=== PATIENT | female | born 1975 | race Caucasian/White ===

== ENCOUNTER → 2017-01-18 | Outpatient (CLI) | payer MEDICARE ==
--- NOTE | 2017-01-19 09:58 | MM ---
Reason for exam: screening (asymptomatic). Last mammogram was performed 2 years and 5 months ago. History: Took hormonal contraceptives for 20 years beginning at age 16. Physical Findings: A clinical breast exam by your physician is recommended on an annual basis and results should be correlated with mammographic findings. MG 3D Screening Mammo W/Cad Bilateral CC and MLO view(s) were taken. Prior study comparison: August 29, 2014, bilateral MG diagnostic mammo w CAD MELONIE. July 04, 2012, bilateral digital screening mammo w/CAD. There are scattered fibroglandular densities. There is chronic nodularity bilaterally. No significant changes when compared with prior studies. ASSESSMENT: Benign, BI-RAD 2 RECOMMENDATION: Routine screening mammogram of both breasts in 1 year.
== END | disposition home or self-care (01) ==
LOC: RADMAMWWP 10:04
PROVIDERS: ATTEND Family Medicine
DX: Z12.31 Encounter for screening mammogram for malignant neoplasm of breast (principal)
CPT/HCPCS: 77063; G0202

== ENCOUNTER → 2017-06-10 | Outpatient (CLI) | payer MEDICARE ==
--- NOTE | 2017-06-10 15:14 | PN ---
PROGRESS NOTE DATE OF SERVICE: 06/10/2017 A 41-year-old lady who has been followed in the [facility] for treatment of obstructive sleep apnea-hypopnea syndrome. Patient had polysomnogram and CPAP titration done several months ago and I discussed results of the test with the patient in details. She has moderate obstructive sleep apnea-hypopnea syndrome with apnea- hypopnea index 15.3, which was on control with CPAP at 9 cm of water. For different technical problems, patient did not receive her CPAP machine yet and she continued to have stopped breathing during the sleep, awakening from sleep with gasping for air. [place] Sleepiness Scale today is 10. MEDICATIONS: Levothyroxine, famotidine, amitriptyline, pramipexole, metformin, atenolol, melatonin, bupropion, Adderall, Klonopin, Imitrex, iron supplement, vitamins, control pill, aspirins. PHYSICAL EXAM: A 41-year-old lady without distress. BP 134/91, HR 94, RR 16, weight 318, temperature 98.2 oxygen saturation at room air 97%. OROPHARYNX: Extremely low position of soft palate. ABDOMEN: Obese. Neck Supple, no JVD. Thyroid is not palpable. LUNGS Clear to percussion and to auscultation. Good air exchange. No wheezing or rhonchi. HEART S1, S2 regular. No murmurs, gallops, or rubs. EXTREMITIES No clubbing or cyanosis. BOX SPINNER Awake, alert, and oriented X3. Cranial nerves 2 to 7 intact. There is no fasciculation or atrophy. noted. No focal deficits observed. IMPRESSION: 1. Moderate obstructive sleep apnea-hypopnea syndrome/. 2. Obesity. 3. Hypothyroidism. 4. Diabetes mellitus. 5. Hypertension. 6. History of restless legs syndrome. 7. Depression. 8. Anxiety. 9. History of attention deficit hyperactivity disorder. 10.Migraines. 11.Status post cholecystectomy. 12.Close head injury with shunt insertion to the to the to the head, which has been removed. PLAN: 1. Patient should receive her CPAP unit and to start use CPAP equipment as soon as possible. I recommended CPAP pressure is 9 cm of water. 2. Losing weight. 3. Sleep hygiene with regular time in bed for at least 8 hours. 4. No driving if feeling sleepiness. Thank you very much for allowing me to participate in the management of your patient. Sincerely, Ghulam Evans MD, PhD, FAASM Diplomat of [employer] Contracting Specialist of [facility] [place] KING / GREY: [id number] /
== END | disposition home or self-care (01) ==
LOC: SLEEP 13:17
PROVIDERS: ATTEND Internal Medicine
DX: G47.33 Obstructive sleep apnea (adult) (pediatric) (principal); E66.9 Obesity, unspecified; E03.9 Hypothyroidism, unspecified; E11.9 Type 2 diabetes mellitus without complications; I10 Essential (primary) hypertension; F32.9 Major depressive disorder, single episode, unspecified; F41.9 Anxiety disorder, unspecified; G43.909 Migraine, unspecified, not intractable, without status migrainosus; Z90.49 Acquired absence of other specified parts of digestive tract

== ENCOUNTER → 2017-10-08 | Outpatient (CLI) | payer MEDICARE ==
--- NOTE | 2017-10-08 09:20 | XR ---
EXAMINATION TYPE: XR shoulder complete LT DATE OF EXAM: 10/08/2017 COMPARISON: NONE HISTORY: Pain TECHNIQUE: Three views are submitted. FINDINGS: The osseous structures are intact. There is no acute fracture or dislocation. Mild narrowing and hyp ertrophic change of the AC joint.. There is a deformity of the left fifth rib laterally compatible w ith remote fracture. IMPRESSION: 1. Mild AC joint arthropathy. If there is concern for rotator cuff injury correlate with MRI..
== END | disposition home or self-care (01) ==
LOC: RADXRMAIN 08:36
PROVIDERS: ATTEND Family Medicine
DX: M12.812 Other specific arthropathies, not elsewhere classified, left shoulder (principal)

== ENCOUNTER → 2017-10-20 | Outpatient (CLI) | payer MEDICARE ==
--- NOTE | 2017-10-20 17:11 | CT ---
EXAMINATION TYPE: CT abdomen pelvis w con DATE OF EXAM: 10/20/2017 COMPARISON: NONE INDICATION: Epigastric pain DLP: 2446 mGycm, Automated exposure control for dose reduction was used. CONTRAST: 100 mL of Omnipaque 300. Study performed with Oral Contrast TECHNIQUE: Axial images were obtained from above the diaphragm to the pubic rami in the axial plane a t 5 mm thick sections. Reconstructed images are reviewed on the computer in the coronal plane. FINDINGS: Limited CT sections are obtained the lung bases. The lung bases are clear. CT ABDOMEN: Liver: Normal Spleen: Normal Pancreas: Normal Adrenal glands: The adrenal glands are normal. Gallbladder: Surgically absent Kidneys: No masses are evident. No hydronephrosis is present. No cysts are present. Delayed images were obtained through the kidneys, which remain unremarkable. Aorta: Normal Inferior vena cava: Normal. CT PELVIS: Loops of bowel within the abdomen and pelvis are normal. There are loops of bowel which are incom pletely distended or lack oral contrast limiting their evaluation. Fecal debris is within the colon. Appendix: What appears to be the appendix is normal. Urinary bladder: Normal. Genitourinary structures: Uterus is normal. Adnexal regions are clear. Phlebolith is in the right hem ipelvis. Osseous structures: No suspicious lytic or sclerotic lesions. IMPRESSIONS: 1. No acute abnormality to account for epigastric pain.
== END | disposition home or self-care (01) ==
LOC: RADCTMAIN 12:13
PROVIDERS: ATTEND Family Medicine
DX: R10.13 Epigastric pain (principal)
CPT/HCPCS: 82565; 84520; 74177; 36415; Q9967

== ENCOUNTER → 2018-04-25 | Outpatient (CLI) | payer MEDICARE ==
--- NOTE | 2018-04-27 10:56 | MM ---
Reason for exam: screening (asymptomatic). Last mammogram was performed 1 year and 3 months ago. History: Took hormonal contraceptives for 20 years beginning at age 16. Physical Findings: A clinical breast exam by your physician is recommended on an annual basis and results should be correlated with mammographic findings. MG 3D Screening Mammo W/Cad Bilateral CC and MLO view(s) were taken. Prior study comparison: January 18, 2017, bilateral MG 3d screening mammo w/cad. August 29, 2014, bilateral MG diagnostic mammo w CAD MELONIE. There are scattered fibroglandular densities. There is chronic nodularity in the left breast. Marker placed on the right at the site of skin alterations indicated by the patient. No significant changes when compared with prior studies. ASSESSMENT: Negative, BI-RAD 1 RECOMMENDATION: Routine screening mammogram of both breasts in 1 year. Manage on a clinical basis with regard to skin pathology described by the patient on the right breast.
== END | disposition home or self-care (01) ==
LOC: RADMAMWWP 12:27
PROVIDERS: ATTEND Family Medicine
DX: Z12.31 Encounter for screening mammogram for malignant neoplasm of breast (principal)
CPT/HCPCS: 77063; 77067

== ENCOUNTER 2018-11-13 11:20 | Emergency (ER) | payer MEDICARE ==
[2018-11-13 11:27] VITALS: RESP 18; TEMP 98
[2018-11-13] MEDS ORDERED: KETOROLAC 60 MG/2 ML VIAL IM STA (11:42)
[2018-11-13 11:58] LABS: Amorphous Sediment,Urine Rare /hpf; Appearance,Urine Cloudy (Clear); Bacteria,Urine Moderate /hpf; Bilirubin,Urine Negative (Negative); Blood,Urine Moderate (Negative); Color,Urine Yellow; Glucose,Urine (UA) Negative (Negative); Ketones,Urine Negative (Negative); Leukocyte Esterase,Urine Trace (Negative); Mucus,Urine Few /hpf; Nitrite,Urine Negative (Negative); Protein,Urine 1+ (Negative); RBC,Urine >182 /hpf (0-5); Specific Gravity,Urine 1.031 (1.001-1.035); Squamous Epithelial Cell,Urine 8 /hpf (0-4)
[2018-11-13] MEDS ORDERED: ONDANSETRON 4 MG/2 ML VIAL IVP STA (12:28)
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
[2018-11-13 12:37] LABS: Anisocytosis Slight; Basophils % (A) 0 %; Eosinophils # (A) 0.2 k/uL (0-0.7); Eosinophils % (A) 1 %; HCT 40.9 % (34.0-46.0); HGB 13.9 gm/dL (11.4-16.0); Lymphocytes # (A) 2.6 k/uL (1.0-4.8); Lymphocytes % (A) 25 %; MCH 28.7 pg (25.0-35.0); MCV 84.5 fL (80.0-100.0); Mean Platelet Volume 9.3; Monocytes # (A) 0.5 k/uL (0-1.0); Monocytes % (A) 5 %; Neutrophils # (A) 6.7 k/uL (1.3-7.7); Neutrophils % (A) 67 %; Platelet Count 411 k/uL (150-450); RBC 4.84 m/uL (3.80-5.40); RDW 16.2 % (11.5-15.5); WBC 10.1 k/uL (3.8-10.6)
[2018-11-13 12:53] LABS: Calcium 9.5 mg/dL (8.4-10.2); Potassium 3.9 mmol/L (3.5-5.1)
--- NOTE | 2018-11-13 14:13 | CT ---
EXAMINATION TYPE: CT abdomen pelvis wo con DATE OF EXAM: 11/13/2018 COMPARISON: Previous study dated 10/20/2017. HISTORY: Abdominal pain. Blood in stool. CT DLP: 1970 mGycm Automated exposure control for dose reduction was used. FINDINGS: Visualized portions of the lungs are clear. There is no pleural or pericardial fluid. The h eart is not enlarged. Within the abdomen, the liver is enlarged measuring 21 cm. The gallbladder has been removed. The sple en is unremarkable. Both adrenal glands appear normal. There is mild hydronephrosis on the left and mild hydroureter. There is a 2 to 3 mm calculus at the l evel of the left UVJ. Limited views of the pancreas are normal. There is no significant retroperitoneal, iliac or inguinal adenopathy. The bladder is not distended. The uterus and ovaries are normal. There have been previous tubal ligations. There is colonic wall thickening involving the left side of the colon. The appendix is normal. Small bowel loops are normal in caliber. There is no free fluid and no free air. No bony lesion is seen. IMPRESSION: 1. QUESTIONABLE THICKENING OF THE LEFT SIDE OF THE COLON. PLEASE CORRELATE FOR COLITIS. 2. 2 TO 3 MM CALCULUS AT THE LEVEL OF THE LEFT UVJ CAUSING MILD LEFT-SIDED HYDRONEPHROSIS AND HYDROUR ETER. 3. MILD HEPATOMEGALY.
[2018-11-13] MEDS ORDERED: ACET/COD 300 MG/30 MG STARTER PACK 6 TAB BTL PO STA (14:14)
[2018-11-13 14:40] VITALS: BP 141/97; PULSE 71
== END 2018-11-13 14:37 | disposition home or self-care (01) ==
LOC: EC 11:20
DX: N13.2 Hydronephrosis with renal and ureteral calculous obstruction (principal); E11.9 Type 2 diabetes mellitus without complications; I10 Essential (primary) hypertension; G47.30 Sleep apnea, unspecified; E07.9 Disorder of thyroid, unspecified; F90.9 Attention-deficit hyperactivity disorder, unspecified type; F32.9 Major depressive disorder, single episode, unspecified; Z79.890 Hormone replacement therapy; Z79.82 Long term (current) use of aspirin; Z79.899 Other long term (current) drug therapy; Z79.84 Long term (current) use of oral hypoglycemic drugs; Z88.0 Allergy status to penicillin; Z91.048 Other nonmedicinal substance allergy status; Z87.891 Personal history of nicotine dependence; Z90.49 Acquired absence of other specified parts of digestive tract
CPT/HCPCS: 36415; 80048; 85025; 81001; 81025; 87086; 74176; 99284; 96374; 96372; J2405; J1885

== ENCOUNTER → 2018-12-08 | Outpatient (CLI) | payer MEDICARE, OTHER ==
--- NOTE | 2018-12-08 18:12 | PN ---
PROGRESS NOTE DATE OF SERVICE: 12/08/2018 43-year-old lady who has been followed in the Sleep Center for treatment of obstructive sleep apnea-hypopnea syndrome. The patient has been diagnosed with obstructive sleep apnea in 2017. At that time, apnea-hypopnea index was 15. She was started on treatment with CPAP, but for different reasons her machine was taken from her and she had never used CPAP since that time. Presently, she continued to have her problems related to snoring and multiple awakenings from sleep. Morley Sleepiness Scale today is 8. MEDICATIONS: Sumatriptan, metformin, omeprazole, Celebrex, levothyroxine, Buspirone, atenolol, atorvastatin, Depo-Provera . PHYSICAL EXAM: GENERAL: Patient in no distress. VITAL SIGNS: BP 130/84, HR 69, RR 18, height 5 feet 7 inches, weight 328.6 pounds, body max index 51.3, temperature 98.5, oxygen saturation at room air 97%. HEENT: Oropharynx showed extremely low position of soft palate. Mallampati 4. Wide neck 17 inches in circumference. NECK: Supple, no JVD. Thyroid is not palpable. LUNGS Clear to percussion and to auscultation. Good air exchange. No wheezing or rhonchi. HEART S1, S2 regular. No murmurs, gallops, or rubs. ABDOMEN: Obese. Soft and nontender. Bowel sounds are present. No organomegaly appreciated. EXTREMITIES No clubbing or cyanosis. GRANULATING BLENDER Awake, alert, and oriented X3. Cranial nerves 2 to 7 intact. There is no fasciculation or atrophy. noted. No focal deficits observed. IMPRESSION: 1. Snoring, multiple awakenings from sleep, extremely low position of soft palate, wide neck, obstructive sleep apnea-hypopnea syndrome. 2. Obesity BMI 51.3. 3. Migraines. 4. Hypertension. 5. Hypothyroidism. 6. History of depression. 7. History of anxiety. 8. History of attention-deficit/hyperactivity disorder. 9. History of restless legs syndrome. 10.Status post cholecystectomy. 11.Status post closed head injury. PLAN: 1. Home sleep apnea test to document obstructive sleep apnea-hypopnea syndrome. 2. CPAP titration for evaluation of effective CPAP pressure. 3. Losing weight. 4. Sleep hygiene with regular time in bed for at least 8 hours. 5. No driving if feeling any sleepiness. Thank you very much for allowing me to participate in management of your patient. Sincerely, Ghulam Evans MD, PhD, FAASM Diplomat of [employer] [employer] Graphic Specialist of [facility] [place] [id number] / MANUELN: [id number] /
== END ==
LOC: SLEEP 14:25
PROVIDERS: ATTEND Internal Medicine
DX: G47.33 Obstructive sleep apnea (adult) (pediatric) (principal); E66.9 Obesity, unspecified; G43.909 Migraine, unspecified, not intractable, without status migrainosus; I10 Essential (primary) hypertension; E03.9 Hypothyroidism, unspecified; F32.9 Major depressive disorder, single episode, unspecified; F41.9 Anxiety disorder, unspecified; F90.9 Attention-deficit hyperactivity disorder, unspecified type; G25.81 Restless legs syndrome; Z90.49 Acquired absence of other specified parts of digestive tract; Z98.890 Other specified postprocedural states; Z68.43 Body mass index [BMI] 50.0-59.9, adult; Z99.89 Dependence on other enabling machines and devices; Z79.899 Other long term (current) drug therapy; Z79.84 Long term (current) use of oral hypoglycemic drugs; Z79.3 Long term (current) use of hormonal contraceptives

== ENCOUNTER → 2019-03-10 | Day surgery (SDC) | payer MEDICARE ==
[2019-03-07 12:25] VITALS: BMI 52.4
[~2019-03-10] MED LIST: LACTATED RINGERS 1,000 ML IV SCH; LIDOCAINE 1% 20 ML VIAL (10MG/ML) FOR IV START INTRADERMA ONE; LIDOCAINE 1% INJ 10MG/ML (20 ML MDV) ONE; MIDAZOLAM 2 MG/2 ML VIAL ONE; PROPOFOL 10 MG/ML 20 ML VIAL IV ONE
[2019-03-10 07:46] VITALS: TEMP 96.8
[2019-03-10 07:55] LABS: Glucose,Whole Blood 100 mg/dL (75-99)
--- NOTE | 2019-03-10 08:17 | P.PCN ---
Date of Procedure: 03/10/19 Procedure(s) Performed: BRIEF HISTORY: Patient is a 43-year-old, pleasant, white female, scheduled for an upper endoscopy as a part of value should of chronic persistent nausea and epigastric discomfort for the last 1 year duration. She was recently started on Pepcid 20 mg twice daily and symptoms are gradually improving. Scheduled for an upper endoscopy to evaluate further. PROCEDURE PERFORMED: Esophagogastroduodenoscopy with biopsy. PREOPERATIVE DIAGNOSIS: Chronic persistent nausea and epigastric pain. IV sedation per anesthesia. PROCEDURE: After informed consent was obtained, the patient was brought into the endoscopy unit. IV sedation was administered by Anesthesia under continuous monitoring. Initially the Olympus GIF-140 video endoscope was inserted into the mouth. Esophagus intubated without any difficulty. It was gradually advanced into the stomach and duodenum and carefully examined. The bulb and the second part of the duodenum appeared normal. The scope at this time was withdrawn to the stomach, adequately insufflated with air, and upon careful examination, mucosa of the antrum, had mild gastritis and biopsies were done from this area. The body, cardia and the fundus appeared normal. There was moderate amount of retained liquid/solid food in the stomach suggestive of gastroparesis. No evidence of gastric outlet obstruction. The scope was then withdrawn into the esophagus. The GE junction was located at 39 cm from the incisors. The esophagus appeared normal. There were no erosions or ulcerations seen and the patient tolerated the procedure well. IMPRESSION: 1. Retained food in the stomach suggestive of gastroparesis. 2. Mild antral gastritis. RECOMMENDATIONS: The findings of this examination were discussed with the patient as well as her family. She was advised to continue with Pepcid 20 mg twice daily and small frequent meals. If she remains symptomatic he may give given a trial of Reglan as needed for gastroparesis..
[2019-03-10 09:07] VITALS: BP 128/76; PULSE 69; RESP 17
== END ==
LOC: ORWHC2ENDO 07:15
PROVIDERS: ATTEND Internal Medicine Gastroenterology
DX: K29.50 Unspecified chronic gastritis without bleeding (principal); K29.80 Duodenitis without bleeding; K31.89 Other diseases of stomach and duodenum; K31.84 Gastroparesis; I10 Essential (primary) hypertension; G43.909 Migraine, unspecified, not intractable, without status migrainosus; E07.9 Disorder of thyroid, unspecified; E11.9 Type 2 diabetes mellitus without complications; R41.3 Other amnesia; G47.33 Obstructive sleep apnea (adult) (pediatric); Z87.891 Personal history of nicotine dependence; Z79.3 Long term (current) use of hormonal contraceptives; Z79.890 Hormone replacement therapy; Z79.899 Other long term (current) drug therapy; Z79.84 Long term (current) use of oral hypoglycemic drugs; Z88.0 Allergy status to penicillin
CPT/HCPCS: 43239; 88305; 81025; J2250; J2001; J2704

== ENCOUNTER → 2019-05-16 | Outpatient (CLI) | payer MEDICARE, OTHER ==
--- NOTE | 2019-05-19 10:23 | MM ---
Reason for exam: screening (asymptomatic). Last mammogram was performed 1 year and 1 month ago. History: Took hormonal contraceptives for 20 years beginning at age 16. Physical Findings: A clinical breast exam by your physician is recommended on an annual basis and results should be correlated with mammographic findings. MG 3D Screening Mammo W/Cad Bilateral CC and MLO view(s) were taken. Prior study comparison: April 25, 2018, bilateral MG 3d screening mammo w/cad. January 18, 2017, bilateral MG 3d screening mammo w/cad. There are scattered fibroglandular densities. No significant changes when compared with prior studies. ASSESSMENT: Benign, BI-RAD 2 RECOMMENDATION: Routine screening mammogram of both breasts in 1 year.
== END | disposition home or self-care (01) ==
LOC: RADMAMWWP 13:25
PROVIDERS: ATTEND Family Medicine
DX: Z12.31 Encounter for screening mammogram for malignant neoplasm of breast (principal)
CPT/HCPCS: 77063; 77067

== ENCOUNTER → 2020-02-21 | Outpatient (CLI) | payer MEDICARE, OTHER ==
--- NOTE | 2020-02-21 19:53 | SFUN ---
SLEEP CENTER FOLLOW UP NOTE DATE OF SERVICE: 02/21/2020 This patient is a 44-year-old lady who has been followed in Sleep Center for treatment of obstructive sleep apnea-hypopnea syndrome. The patient has a history of obstructive sleep apnea in the past, was treated with CPAP, but for different reasons was not able to use the machine. Then more than one year ago we repeated her home sleep apnea test and then, because of insurance issues, the patient did not receive her machine. Again, this was more than one year ago. At present she continues to have some problems with sleep: snoring, awakenings from sleep. [place] Sleepiness Scale is 4. Previously she had mild sleep apnea by results of home sleep test. MEDICATIONS: Vitamins B and vitamin D. PHYSICAL EXAMINATION: GENERAL: A pleasant patient in no distress. VITAL SIGNS: BP 156/82, HR 70, RR 16, height 5 feet 6 inches, weight 326, BMI 52.6, temperature 98.9, oxygen saturation at room air 97%. HEENT: PERRLA, EOMI. Evaluation of oropharynx showed tongue protrudes midline. Extremely low position of soft palate. Mallampati IV. NECK: Supple. No JVD. Thyroid is not palpable. Neck measures 17 inches in circumference. LUNGS: Clear to percussion and to auscultation. Good air exchange. No wheezing or rhonchi. HEART: S1, S2 regular. No murmurs, gallops or rubs. ABDOMEN: Obese. EXTREMITIES: No clubbing or cyanosis. UI DESIGNER: Awake, alert, and oriented X3. Cranial nerves 2 to 7 intact. There is no fasciculation or atrophy. noted. No focal deficits observed. IMPRESSION: 1. Snoring, multiple awakenings from sleep, extremely low position of soft palate; obstructive sleep apnea-hypopnea syndrome. 2. Obesity. 3. Migraines. 4. Hypertension. 5. History of depression. 6. History of anxiety. 7. Hypothyroidism. 8. History of attention deficit hyperactivity disorder. 9. History of restless legs syndrome. 10.Status post cholecystectomy. 11.Status post closed head injury. PLAN: 1. Polysomnography for re-evaluation of patient's breathing during sleep; also to check for leg movements. 2. CPAP titration if the sleep study is positive for obstructive sleep apnea-hypopnea syndrome. 3. Losing weight. 4. Sleep hygiene with regular time in bed for at least 7-1/2 to 8 hours. 5. No driving if feeling any sleepiness. Thank you very much for allowing me to participate in the management of your patient. Sincerely, Ghulam Evans MD, PhD, FAASM Diplomat of [employer] Foot Orthopedist of [facility] [place] MMODL / MANUELN: [id number] /
== END | disposition home or self-care (01) ==
LOC: SLEEP 14:14
PROVIDERS: ATTEND Internal Medicine
DX: G47.33 Obstructive sleep apnea (adult) (pediatric) (principal); Z99.89 Dependence on other enabling machines and devices; E66.9 Obesity, unspecified; G43.909 Migraine, unspecified, not intractable, without status migrainosus; I10 Essential (primary) hypertension; E03.9 Hypothyroidism, unspecified; Z90.79 Acquired absence of other genital organ(s); Z86.59 Personal history of other mental and behavioral disorders

== ENCOUNTER → 2020-10-01 | Outpatient (CLI) | payer MEDICARE, OTHER ==
--- NOTE | 2020-10-02 10:19 | MM ---
Reason for exam: screening (asymptomatic). Last mammogram was performed 1 year and 4 months ago. History: Taking hormonal contraceptives for 20 years beginning at age 16. Physical Findings: A clinical breast exam by your physician is recommended on an annual basis and results should be correlated with mammographic findings. MG 3D Screening Mammo W/Cad Bilateral CC and MLO view(s) were taken. Prior study comparison: May 16, 2019, bilateral MG 3d screening mammo w/cad. April 25, 2018, bilateral MG 3d screening mammo w/cad. Finding #1: There is a 10 mm equal density (isodense) mass in the upper outer quadrant of the left breast. Finding #2: There are typically benign calcifications. There is a chronic nodularity in the left breast, stable. ASSESSMENT: Incomplete: need additional imaging evaluation, BI-RAD 0 RECOMMENDATION: Special view mammogram of the left breast. If lesion persists on supplemental views, image directed ultrasound is recommended. [facility] will attempt to contact patient to return for supplemental views and ultrasound if indicated.
== END | disposition home or self-care (01) ==
LOC: RADMAMWWP 10:50
PROVIDERS: ATTEND Family Medicine
DX: Z12.31 Encounter for screening mammogram for malignant neoplasm of breast (principal)
CPT/HCPCS: 77063; 77067

== ENCOUNTER → 2020-10-07 | Outpatient (CLI) | payer MEDICARE, OTHER ==
--- NOTE | 2020-10-07 09:40 | MM ---
Reason for exam: additional evaluation requested from abnormal screening. Last mammogram was performed less than 1 month ago. History: Taking hormonal contraceptives beginning at age 16. Physical Findings: Nurse did not find any significant physical abnormalities on exam. MG 3D Work Up W/Cad LT Spot compression CC, spot compression MLO, ML, and CC view(s) were taken of the left breast. Prior study comparison: October 01, 2020, bilateral MG 3d screening mammo w/cad. May 16, 2019, bilateral MG 3d screening mammo w/cad. There are scattered fibroglandular densities. The posterior upper outer quadrant focal asymmetry becomes less defined on additional views. A precautionary 6 month follow up is recommended. These results were verbally communicated with the patient and result sheet given to the patient on 10/07/20. ASSESSMENT: Probably benign, BI-RAD 3 RECOMMENDATION: Follow-up diagnostic mammogram of the left breast in 6 months.
== END ==
LOC: RADMAMWWP 08:34
PROVIDERS: ATTEND Family Medicine
DX: R92.8 Other abnormal and inconclusive findings on diagnostic imaging of breast (principal)
CPT/HCPCS: 77065; G0279; 77061

== ENCOUNTER → 2020-10-31 | Outpatient (CLI) | payer MEDICARE, OTHER ==
--- NOTE | 2020-10-31 16:04 | SFUN ---
SLEEP CENTER FOLLOW UP NOTE DATE OF SERVICE: 10/31/2020 This 45-year-old lady has been followed in Sleep Center for treatment of obstructive sleep apnea-hypopnea syndrome. Recently after polysomnogram and CPAP titration the patient received her CPAP unit, and today is his first time coming back while being on treatment with CPAP. She feels better while she is using her CPAP. She feels better during the day but still has some episodes of sleepiness during the day, although [place] Sleepiness Scale today is only 4. During the sleep study we also observed some leg movements. The patient does not complain of leg movements at night. She does not feel it, but this also could be precipitating and feeling of sleepiness during the day. I checked her CPAP unit. Usage is 100% of the time with average usage 7 hours 36 minutes. Range of the pressure is 5 to 15 with average pressure 14.6 cm of water. Leak is 1.0, 95th percentile. Apnea-hypopnea index is only 0.8, which is absolutely perfect. PHYSICAL EXAMINATION: GENERAL: A pleasant patient in no distress. VITAL SIGNS: BP 155/103, HR 71, RR 20, weight 328.0, temperature 97.7, oxygen saturation at room air 97%. HEENT: PERRLA, EOMI. Evaluation of oropharynx showed tongue protrudes midline. Extremely low position of soft palate. Mallampati IV. NECK: Supple. No JVD. Thyroid is not palpable. LUNGS: Clear to percussion and to auscultation. Good air exchange. No wheezing or rhonchi. HEART: S1, S2 regular. No murmurs, gallops or rubs. ABDOMEN: Obese. EXTREMITIES: No clubbing or cyanosis. ORACLE BPM DEVELOPER: Awake, alert, and oriented X3. Cranial nerves 2 to 7 intact. There is no fasciculation or atrophy. noted. No focal deficits observed. IMPRESSION: 1. Obstructive sleep apnea-hypopnea syndrome. Patient demonstrated 100% compliance with treatment, benefitting from treatment. 2. Periodic limb movements. 3. Obesity. 4. Migraines. 5. Hypertension. 6. History of depression. 7. History of anxiety. 8. Hypothyroidism. 9. History of attention deficit hyperactivity disorder. 10.History of restless legs. 11.Status post cholecystectomy. 12.Status post closed-head injury. PLAN: 1. Patient will continue to use PAP equipment every night for the whole night. 2. Sleep hygiene with regular time in bed for at least 7-1/2 to 8 hours. 3. Precautions related to driving. No driving if feeling sleepiness. 4. I will maintain all necessary prescription for PAP supplies including mask, tube, filters. 5. Watching weight. 6. Follow-up visit in 6 months or earlier if patient has any problems. 7. I will start the patient on the lowest dose of Mirapex for prevention of periodic limb movements. If medication improves her alertness during the day, then she will continue it. If it does not make any clinical changes, we will stop it. 8. If the patient continues to have symptoms of excessive daytime sleepiness in the future, she is a candidate for multiple sleep latency test for objective evaluation symptoms of sleepiness. Thank you very much for allowing me to participate in the management of your patient. Sincerely, Ghulam Evans MD, PhD, FAASM Diplomat of [employer] Medicine Clinical Trial Head of [facility] [id number] / MANUELN: [id number] /
== END ==
LOC: SLEEP 14:39
PROVIDERS: ATTEND Internal Medicine
DX: G47.33 Obstructive sleep apnea (adult) (pediatric) (principal); G47.61 Periodic limb movement disorder; E66.9 Obesity, unspecified; G43.909 Migraine, unspecified, not intractable, without status migrainosus; I10 Essential (primary) hypertension; F32.9 Major depressive disorder, single episode, unspecified; E03.9 Hypothyroidism, unspecified; Z87.828 Personal history of other (healed) physical injury and trauma; Z86.59 Personal history of other mental and behavioral disorders; Z90.49 Acquired absence of other specified parts of digestive tract; Z87.39 Personal history of other diseases of the musculoskeletal system and connective tissue

== ENCOUNTER → 2021-05-06 | Outpatient (CLI) | payer MEDICARE, OTHER ==
--- NOTE | 2021-05-07 08:29 | MM ---
Reason for exam: follow-up at short interval from prior study. Last mammogram was performed 7 months ago. History: Family history of breast cancer in mother at age 82. Taking hormonal contraceptives beginning at age 16. Physical Findings: Nurse did not find any significant physical abnormalities on exam. MG 3D Diag Mammo W/Cad LT CC and MLO view(s) were taken of the left breast. Prior study comparison: October 07, 2020, left breast MG 3d work up w/cad LT. October 01, 2020, bilateral MG 3d screening mammo w/cad. There are scattered fibroglandular densities. There is chronic nodularity in the left breast medially. Stable fibroglandular tissue upper outer quadrant. No significant changes when compared with prior studies. ASSESSMENT: Benign, BI-RAD 2 RECOMMENDATION: Return to routine screening mammogram schedule for both breasts. Back on schedule for September 2021.
== END | disposition home or self-care (01) ==
LOC: RADMAMWWP 14:04
PROVIDERS: ATTEND Family Medicine
DX: N64.89 Other specified disorders of breast (principal); Z80.3 Family history of malignant neoplasm of breast
CPT/HCPCS: 77065; G0279; 77061

== ENCOUNTER → 2021-05-08 | Outpatient (CLI) | payer MEDICARE, OTHER ==
--- NOTE | 2021-05-08 15:53 | SFUN ---
SLEEP CENTER FOLLOW UP NOTE DATE OF SERVICE: 05/08/2021 This 45-year-old lady has been followed in Sleep Center for treatment of obstructive sleep apnea and hypopnea syndrome. At present, the patient has difficulties using her machine because her mask, which is an AirFit P10 nasal pillow mask, has head gear which is too loose and goes out of her head. [place] Sleepiness Scale today is 4, which is normal. I checked her CPAP unit. Range of the pressure is 5-15, average pressure 10.5. When the patient patient used it several months ago, apnea-hypopnea index was only 0.2 and leak only 4 L/minute. MEDICATIONS: 1. Wellbutrin 100 mg once a day. 2. Lisinopril. 3. Dopaminergic agonists for periodic limb movements. 4. Levothyroxine. 5. Famotidine. 6. Metformin. 7. Atenolol. 8. Bupropion. PHYSICAL EXAMINATION: GENERAL: Pleasant patient in no distress. VITAL SIGNS: BP 164/96, HR 90, RR 15, height 5 feet 6 inches, weight 338.2, body mass index 54.5. HEENT: PERRLA, EOMI, evaluation of oropharynx showed tongue protrudes midline. Extremely low position of soft palate; Mallampati IV. NECK: Supple, no JVD. Thyroid is not palpable. LUNGS: Clear to percussion and to auscultation. Good air exchange. No wheezing or rhonchi. HEART: S1, S2 regular. No murmurs, gallops, or rubs. ABDOMEN: Obese. EXTREMITIES: No clubbing or cyanosis. IDENTIFICATION PRINTING MACHINE SETTER: Awake, alert, and oriented X3. Cranial nerves 2 to 7 intact. There is no fasciculation or atrophy. noted. No focal deficits observed. IMPRESSION: 1. Obstructive sleep apnea-hypopnea syndrome. At present the patient has difficulties using the machine. Her nasal pillow mask head gear is very loose. Respiration normal with CPAP. 2. Periodic limb movements. 3. Obesity. 4. Migraines. 5. Hypertension. 6. History of depression. 7. History of anxiety. 8. Hypothyroidism. 9. History of attention deficit hyperactivity disorder. 10.History of restless legs. 11.Status post cholecystectomy. 12.Status post closed head injury. PLAN: 1. I will change the nasal pillow mask from AirFit P10 to Ortiz FX. This mask has different head gear which works much longer. 2. Patient will continue to use PAP equipment every night for the whole night. 3. Sleep hygiene with regular time in bed for at least 7-1/2 to 8 hours. 4. Precautions related to driving. No driving if feeling sleepiness. 5. I will maintain all necessary prescription for PAP supplies including mask, tube, filters. 6. Watching weight. 7. Follow-up visit in 6 months or earlier if patient has any problems. Thank you very much for allowing me to participate in the management of your patient. Sincerely, Ghulam Evans MD, PhD, FAASM Diplomat of [employer] Sleep Medicine Board of [employer] of Internal Medicine [employer] Loose End Finder of [facility] [place] [email or web address] / MANUELN: [id number] /
== END ==
LOC: SLEEP 13:11
PROVIDERS: ATTEND Internal Medicine
DX: G47.33 Obstructive sleep apnea (adult) (pediatric) (principal); G47.61 Periodic limb movement disorder; E66.9 Obesity, unspecified; G43.909 Migraine, unspecified, not intractable, without status migrainosus; I10 Essential (primary) hypertension; F32.9 Major depressive disorder, single episode, unspecified; F41.9 Anxiety disorder, unspecified; E03.9 Hypothyroidism, unspecified; Z99.89 Dependence on other enabling machines and devices; Z68.43 Body mass index [BMI] 50.0-59.9, adult; G25.81 Restless legs syndrome; Z90.49 Acquired absence of other specified parts of digestive tract; Z87.820 Personal history of traumatic brain injury; Z86.59 Personal history of other mental and behavioral disorders; Z79.899 Other long term (current) drug therapy; Z87.891 Personal history of nicotine dependence; Z88.0 Allergy status to penicillin; Z91.048 Other nonmedicinal substance allergy status

== ENCOUNTER → 2021-11-17 | Outpatient (CLI) | payer MEDICARE, OTHER ==
--- NOTE | 2021-11-19 11:56 | MM ---
Reason for exam: screening (asymptomatic). Last mammogram was performed 6 months ago. History: Family history of breast cancer in mother at age 82. Taking hormonal contraceptives beginning at age 16. Physical Findings: A clinical breast exam by your physician is recommended on an annual basis and results should be correlated with mammographic findings. MG 3D Screening Mammo W/Cad Bilateral CC and MLO view(s) were taken. Prior study comparison: May 06, 2021, left breast MG 3d diag mammo w/cad LT. October 07, 2020, left breast MG 3d work up w/cad LT. There are scattered fibroglandular densities. There is chronic nodularity in the left breast. No significant changes when compared with prior studies. ASSESSMENT: Benign, BI-RAD 2 RECOMMENDATION: Routine screening mammogram of both breasts in 1 year.
== END | disposition home or self-care (01) ==
LOC: RADMAMWWP 14:23
PROVIDERS: ATTEND Family Medicine
DX: Z12.31 Encounter for screening mammogram for malignant neoplasm of breast (principal); Z80.3 Family history of malignant neoplasm of breast
CPT/HCPCS: 77063; 77067

== ENCOUNTER 2022-11-08 03:47 | Emergency (ER) | payer MEDICARE, OTHER ==
[2022-11-08] MEDS ORDERED: SODIUM CHLORIDE 0.9% 1,000 ML IV STA (04:29)
[2022-11-08] MEDS ORDERED: KETOROLAC 15 MG/ML 1 ML VIAL IVP STA (04:44)
[2022-11-08] MEDS ORDERED: ONDANSETRON 4 MG/2 ML VIAL IVP STA (04:45)
[2022-11-08 05:13] LABS: Basophils # (A) 0.1 k/uL (0-0.2); Basophils % (A) 0 %; Eosinophils # (A) 0.1 k/uL (0-0.7); Eosinophils % (A) 1 %; HCT 42.7 % (34.0-46.0); HGB 14.7 gm/dL (11.4-16.0); Lymphocytes # (A) 1.6 k/uL (1.0-4.8); Lymphocytes % (A) 11 %; MCH 30.1 pg (25.0-35.0); MCHC 34.5 g/dL (31.0-37.0); MCV 87.3 fL (80.0-100.0); Mean Platelet Volume 7.6; Monocytes # (A) 0.4 k/uL (0-1.0); Monocytes % (A) 3 %; Neutrophils # (A) 11.7 k/uL (1.3-7.7); Neutrophils % (A) 84 %; Platelet Count 335 k/uL (150-450); RDW 13.9 % (11.5-15.5); WBC 14.1 k/uL (3.8-10.6)
[2022-11-08 05:24] LABS: Albumin 4.3 g/dL (3.5-5.0); Appearance,Urine Cloudy (Clear); Bacteria,Urine Few /hpf; Bilirubin,Urine Negative (Negative); Blood,Urine Trace (Negative); Calcium 9.7 mg/dL (8.4-10.2); Calcium Oxalate Crystals,Urine Rare /hpf; Color,Urine Yellow; Glucose,Urine (UA) Negative (Negative); Hyaline Casts,Urine 4 /lpf (0-2); Ketones,Urine Negative (Negative); Leukocyte Esterase,Urine Negative (Negative); Mucus,Urine Few /hpf; Nitrite,Urine Negative (Negative); PH, Urine 5.5 (5.0-8.0); Potassium 4.3 mmol/L (3.5-5.1); Protein,Urine 2+ (Negative); RBC,Urine 1 /hpf (0-5); Specific Gravity,Urine 1.021 (1.001-1.035); Squamous Epithelial Cell,Urine 7 /hpf (0-4); Total Bilirubin 1.2 mg/dL (0.2-1.3); Total Protein 7.5 g/dL (6.3-8.2); Urobilinogen,Urine <2.0 mg/dL (<2.0); WBC,Urine 2 /hpf (0-5)
--- NOTE | 2022-11-08 06:29 | CT ---
EXAMINATION TYPE: CT abdomen pelvis wo con DATE OF EXAM: 11/08/2022 HISTORY: Lower abdominal pain with nausea and vomiting. History of kidney stones. CT DLP: 2388 mGycm. Automated Exposure Control for Dose Reduction was Utilized. TECHNIQUE: CT scan of the abdomen and pelvis is performed without oral or IV contrast. COMPARISON: CT November 13, 2018 FINDINGS: Within the limitations of a non-contrast study, the following observations are made. LUNG BASES: No significant abnormality is appreciated. LIVER/GB: Hepatomegaly redemonstrated. Liver is heterogeneously hypodense consistent with fatty infil trative hepatocellular disease. Cholecystectomy clips are redemonstrated PANCREAS: No significant abnormality is seen. SPLEEN: No significant abnormality is seen. ADRENALS: No significant abnormality is seen. KIDNEYS: On current exam there are 1-2 calculi bilaterally measuring up to 3 mm in size. No right-mehreen ed hydronephrosis. There is 5 mm calculus in the distal left ureter causing mild left-sided hydroneph rosis axial image 147 current study. Mild to moderate left-sided perinephric fluid and fat stranding is seen. No intraluminal calculus in the poorly distended bladder. BOWEL: Normal-appearing Appendix. No suspicious small enlarged bowel dilatation. GENITAL ORGANS: No gross abnormality seen. LYMPH NODES: No greater than 1cm abdominal or pelvic lymph nodes are appreciated. OSSEOUS STRUCTURES: Multilevel facet arthropathy in the mid to lower lumbar spine. OTHER: No significant additional abnormality is seen. IMPRESSION: Tiny bilateral nephrolithiasis with 5 mm calculus in the distal left ureter causing mild left-sided hydronephrosis.
[2022-11-08] MEDS ORDERED: TAMSULOSIN 0.4 MG CAP.ER.24H PO STA (07:17)
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
[2022-11-08 08:05] VITALS: BP 132/70; PULSE 95; RESP 20; TEMP 97.9
== END 2022-11-08 07:50 | disposition home or self-care (01) ==
LOC: EC 03:47
DX: N13.2 Hydronephrosis with renal and ureteral calculous obstruction (principal); E11.9 Type 2 diabetes mellitus without complications; I10 Essential (primary) hypertension; E07.9 Disorder of thyroid, unspecified; F41.9 Anxiety disorder, unspecified; F32.A Depression, unspecified; Z88.0 Allergy status to penicillin; Z91.048 Other nonmedicinal substance allergy status; Z90.49 Acquired absence of other specified parts of digestive tract; Z79.890 Hormone replacement therapy; Z79.84 Long term (current) use of oral hypoglycemic drugs; Z79.899 Other long term (current) drug therapy
CPT/HCPCS: 36415; 80053; 83605; 83690; 85025; 81001; 74176; 99284; 96374; 96375; 96361; J2405; J1885

== ENCOUNTER → 2023-02-10 | Outpatient (CLI) | payer MEDICARE, OTHER ==
--- NOTE | 2023-02-11 08:36 | MM ---
Reason for Exam: Screening (asymptomatic). Last mammogram was performed 1 year(s) and 3 month(s) ago. Patient History: Menarche at age 11. Patient has no children. Premenopausal. Currently using Hormonal Contraceptives, starting at age 16. Mother had breast cancer, age 82. Risk Values: Violetta 5 year model risk: 1.9%. NCI Lifetime model risk: 19.1%. Prior Study Comparison: 10/07/2020 Left Diagnostic Mammogram, [facility]. 05/06/2021 Left Diagnostic Mammogram, [facility]. 11/17/2021 Bilateral Screening Mammogram, [facility]. Tissue Density: There are scattered fibroglandular densities. Findings: Analyzed By CAD. There is no suspicious group of microcalcifications or new suspicious mass in either breast. Overall Assessment: Negative, BI-RAD 1 Management: Screening Mammogram of both breasts in [address] [facility] will attempt to contact patient to return for supplemental views and ultrasound if indicated. Patient should continue monthly self-breast exams. A clinical breast exam by your physician is recommended on an annual basis. This exam should not preclude additional follow-up of suspicious palpable abnormalities. Note on Violetta scores and lifetime risk: 1. A Violetta score greater than 3% is considered moderate risk. If this is the case, consider specialist referral to assess eligibility for a risk reducing agent. 2. If overall lifetime risk for the development of breast cancer is 20% or higher, the patient may qualify for future screening with alternating mammogram and breast MRI. Electronically signed and approved by: Ronnie Welsh DO
== END | disposition home or self-care (01) ==
LOC: RADMAMWWP 13:27
PROVIDERS: ATTEND Family Medicine
DX: Z12.31 Encounter for screening mammogram for malignant neoplasm of breast (principal); Z80.3 Family history of malignant neoplasm of breast
CPT/HCPCS: 77063; 77067

== ENCOUNTER 2024-08-27 11:48 | Emergency (ER) | payer MEDICARE, OTHER ==
[2024-08-27 11:53] VITALS: TEMP 97.4
[2024-08-27 12:29] LABS: Basophils % (A) 0 %; Eosinophils # (A) 0.2 k/uL (0-0.7); Eosinophils % (A) 2 %; HCT 41.2 % (34.0-46.0); HGB 13.5 gm/dL (11.4-16.0); Lymphocytes # (A) 2.1 k/uL (1.0-4.8); Lymphocytes % (A) 21 %; MCH 28.3 pg (25.0-35.0); MCHC 32.8 g/dL (31.0-37.0); MCV 86.1 fL (80.0-100.0); Mean Platelet Volume 6.8; Monocytes # (A) 0.4 k/uL (0-1.0); Monocytes % (A) 4 %; Neutrophils # (A) 7.3 k/uL (1.3-7.7); Neutrophils % (A) 72 %; Platelet Count 435 k/uL (150-450); RBC 4.78 m/uL (3.80-5.40); RDW 13.4 % (11.5-15.5); WBC 10.1 k/uL (3.8-10.6)
[2024-08-27 12:36] LABS: Amorphous Sediment,Urine Rare /hpf; Appearance,Urine Cloudy (Clear); Bacteria,Urine Rare /hpf; Bilirubin,Urine Negative (Negative); Blood,Urine Moderate (Negative); Color,Urine Yellow; Glucose,Urine (UA) Negative (Negative); Ketones,Urine Negative (Negative); Leukocyte Esterase,Urine Negative (Negative); Mucus,Urine Few /hpf; Nitrite,Urine Negative (Negative); PH, Urine 5.5 (5.0-8.0); Protein,Urine Trace (Negative); RBC,Urine 51 /hpf (0-5); Specific Gravity,Urine 1.028 (1.001-1.035); Squamous Epithelial Cell,Urine 2 /hpf (0-4); Urobilinogen,Urine <2.0 mg/dL (<2.0); WBC,Urine 3 /hpf (0-5)
[2024-08-27] MEDS: KETOROLAC 15 MG/ML 1 ML VIAL IVP STA (12:36)
[2024-08-27] MEDS: SODIUM CHLORIDE 0.9% 1,000 ML IV STA (12:36)
[2024-08-27] MEDS: ONDANSETRON 4 MG/2 ML VIAL IVP STA (12:37)
[2024-08-27 12:41] LABS: ALT 21 U/L (4-34); AST 25 U/L (14-36); African American GFR (CKD) 55 (>60 ml/min/1.73 sqM); Albumin 4.5 g/dL (3.5-5.0); Alkaline Phosphatase 100 U/L (38-126); Anion Gap 13 mmol/L; Blood Urea Nitrogen 10 mg/dL (7-17); Calcium 9.4 mg/dL (8.4-10.2); Carbon Dioxide 23 mmol/L (22-30); Chloride 105 mmol/L (98-107); Glucose 112 mg/dL (74-99); Lipase 138 U/L (23-300); Non-African American GFR(CKD) 48 (>60 ml/min/1.73 sqM); Potassium 3.4 mmol/L (3.5-5.1); Sodium 141 mmol/L (137-145); Total Bilirubin 1.4 mg/dL (0.2-1.3); Total Protein 7.8 g/dL (6.3-8.2)
--- NOTE | 2024-08-27 13:25 | CT ---
EXAMINATION TYPE: CT abdomen pelvis wo con DATE OF EXAM: 08/27/2024 1:00 PM COMPARISON: 11/08/2022 CLINICAL INDICATION: Female, 49 years old with history of abdominal pain; LLQ pain, history of stones TECHNIQUE: Axial CT abdomen pelvis wo con;Sagittal and coronal reformats were created on a separate workstation. Contrast used: mL of , (none if empty) Oral contrast used: without Oral Contrast (none if empty) CT DLP: 1781.4 mGycm, Automated exposure control for dose reduction was used. FINDINGS: LOWER CHEST: Unremarkable ABDOMEN LIVER: Diffusely hypoattenuating parenchyma. GALLBLADDER AND BILE DUCTS: Unremarkable. PANCREAS: Unremarkable. SPLEEN: Unremarkable. ADRENAL GLANDS: Unremarkable. KIDNEYS AND URETERS: Mild left hydronephrosis secondary to obstructing calculus at the chest proximal to ureterovesicular junction measuring 5 mm. Additional nonobstructing bilateral renal calculi measu ring up to 3 mm in left and 2 mm on the right. PELVIS BLADDER: No evidence for wall thickening or mass given limitations of exam. REPRODUCTIVE: A tampon is in the vagina.. ABDOMEN & PELVIS STOMACH AND BOWEL: No evidence of bowel obstruction. The appendix is normal. PERITONEUM/RETROPERITONEUM: No evidence of pneumoperitoneum or free fluid. VASCULATURE: Mild atherosclerotic calcifications are present throughout the abdominal aorta and its b ranches. No evidence of aortic aneurysm. MUSCULOSKELETAL: No acute osseous abnormalities. Mild disc degeneration changes are present throughou t the thoracolumbar spine. LYMPH NODES: No gross evidence for lymphadenopathy. SOFT TISSUE/ABDOMINAL WALL: Unremarkable IMPRESSION: Mild left hydronephrosis secondary to obstructing calculus at the chest proximal to ureterovesicular junction measuring 5 mm. Additional nonobstructing bilateral renal calculi measuring up to 3 mm in le ft and 2 mm on the right. [facility], , 08/27/2024 1:23 PM
[2024-08-27 14:37] VITALS: RESP 16
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
[2024-08-27] MEDS: TAMSULOSIN 0.4 MG CAP.ER.24H PO STA (15:04)
[2024-08-27 15:08] VITALS: BP 148/94; PULSE 89
== END 2024-08-27 15:08 | disposition home or self-care (01) ==
LOC: EC 11:48
DX: R10.32 Left lower quadrant pain (principal); N13.2 Hydronephrosis with renal and ureteral calculous obstruction; Z87.891 Personal history of nicotine dependence; Z88.0 Allergy status to penicillin; Z91.09 Other allergy status, other than to drugs and biological substances
CPT/HCPCS: 36415; 80053; 83690; 85025; 81001; 81025; 74176; 99284; 96374; 96375; 96361; J2405; J1885

== ENCOUNTER → 2024-10-03 | Outpatient (CLI) | payer MEDICARE, OTHER ==
--- NOTE | 2024-10-04 06:38 | US ---
EXAMINATION TYPE: US kidneys/renal and bladder DATE OF EXAM: 10/03/2024 COMPARISON: CT: 08/27/24 CLINICAL INDICATION: Female, 49 years old with history of N20.1 CALCULUS URETER LEFT SIDE; left sided hydro on CT TECHNIQUE: Grayscale imaging of the bilateral kidneys and urinary bladder: FINDINGS: EXAM MEASUREMENTS: Right Kidney: 10.0 x 5.1 x 5.7 cm Left Kidney: 9.6 x 5.3 x 5.1 cm Right Kidney: No hydronephrosis or masses seen Left Kidney: echogenic focus seen mid pole measuring 0.6 x 0.5 x 0.3cm Bladder: wnl Bilateral Jets seen: no There is no evidence for hydronephrosis at this point in time. Suspect 5 mm nonobstructing left renal calculus. No masses are identified. The urinary bladder is anechoic. IMPRESSION: No hydronephrosis seen bilaterally. Small nonobstructing bilateral renal calculi on CT le ss well seen on ultrasound but presumed still present. [facility], , 10/04/2024 6:35 AM
== END | disposition home or self-care (01) ==
LOC: RADUSWWP 16:13
PROVIDERS: ATTEND Urology
DX: N20.2 Calculus of kidney with calculus of ureter (principal)
CPT/HCPCS: 76770

== ENCOUNTER 2024-11-04 14:09 | Emergency (ER) | payer MEDICARE, OTHER ==
[2024-11-04 14:14] VITALS: RESP 18
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
[2024-11-04] MEDS: ONDANSETRON 4 MG/2 ML VIAL IVP STA (14:47)
[2024-11-04] MEDS: HYDROmorphone 0.5 MG/0.5 ML SYRINGE IVP STA (14:48)
[2024-11-04] MEDS: KETOROLAC 15 MG/ML 1 ML VIAL IVP STA (14:48)
[2024-11-04 14:52] LABS: Basophils % (A) 0 %; Eosinophils # (A) 0.1 k/uL (0-0.7); Eosinophils % (A) 1 %; HCT 40.9 % (34.0-46.0); HGB 13.3 gm/dL (11.4-16.0); Lymphocytes # (A) 1.9 k/uL (1.0-4.8); Lymphocytes % (A) 16 %; MCH 28.2 pg (25.0-35.0); MCHC 32.6 g/dL (31.0-37.0); MCV 86.7 fL (80.0-100.0); Monocytes # (A) 0.5 k/uL (0-1.0); Monocytes % (A) 4 %; Neutrophils # (A) 9.4 k/uL (1.3-7.7); Neutrophils % (A) 78 %; Platelet Count 446 k/uL (150-450); RBC 4.72 m/uL (3.80-5.40); RDW 14.4 % (11.5-15.5)
--- NOTE | 2024-11-04 15:55 | CT ---
EXAMINATION TYPE: CT abdomen pelvis wo con DATE OF EXAM: 11/04/2024 3:24 PM COMPARISON: None. CLINICAL INDICATION: Female, 49 years old with history of R flank pain w/ radiation into abdomen, hx stones, Rt flank pain, hx stones TECHNIQUE: Axial images with sagittal coronal reformats. Examination of the solid and hollow viscera is limited given the lack of contrast. CT DLP: 1734.4 mGycm, Automated exposure control for dose reduction was used. FINDINGS: LUNG BASES: No evidence for nodule. No evidence for infiltrate. LIVER/GB: The gallbladder is unremarkable. No space-occupying hepatic lesion. PANCREAS: No pancreatic mass identified. No inflammatory process seen. SPLEEN: No evidence for splenomegaly. No intrasplenic lesions seen. ADRENALS: No adrenal nodules identified. No evidence for thickening. KIDNEYS: No evidence for renal mass. There is a 3 mm maximal right UVJ calculus resulting in mild rig ht-sided hydronephrosis and mild renal edema and perinephric stranding. Additional 3 mm nonobstructin g right-sided calculus noted. BOWEL: Appendix has a normal appearance. No evidence of bowel obstruction. No inflammatory process. Lymph nodes: No evidence for adenopathy greater than 1 cm. Abdominal aorta: Atheromatous changes seen. No evidence for aneurysm. Genital organs: No significant abnormality. Other: No significant abnormality. IMPRESSION: There is a 3 mm maximal right UVJ calculus resulting in mild right-sided hydronephrosis and mild deborah l edema and perinephric stranding. [facility], , 11/04/2024 3:53 PM
[2024-11-04 16:02] LABS: ALT 13 U/L (4-34); AST 20 U/L (14-36); African American GFR (CKD) 34 (>60 ml/min/1.73 sqM); Albumin 4.2 g/dL (3.5-5.0); Alkaline Phosphatase 88 U/L (38-126); Anion Gap 12 mmol/L; Blood Urea Nitrogen 15 mg/dL (7-17); Calcium 9.4 mg/dL (8.4-10.2); Carbon Dioxide 17 mmol/L (22-30); Chloride 111 mmol/L (98-107); Glucose 98 mg/dL (74-99); Lipase 167 U/L (23-300); Non-African American GFR(CKD) 29 (>60 ml/min/1.73 sqM); Potassium 4.5 mmol/L (3.5-5.1); Sodium 140 mmol/L (137-145); Total Bilirubin 1.6 mg/dL (0.2-1.3); Total Protein 7.5 g/dL (6.3-8.2)
[2024-11-04] MEDS: SODIUM CHLORIDE 0.9% 1,000 ML IV STA (16:15)
[2024-11-04 16:25] LABS: Appearance,Urine Cloudy (Clear); Bacteria,Urine Moderate /hpf; Bilirubin,Urine Negative (Negative); Blood,Urine Small (Negative); Color,Urine Colorless; Glucose,Urine (UA) Negative (Negative); Hyaline Casts,Urine 4 /lpf (0-2); Ketones,Urine Negative (Negative); Leukocyte Esterase,Urine Moderate (Negative); Mucus,Urine Rare /hpf; Nitrite,Urine Negative (Negative); PH, Urine 5.5 (5.0-8.0); Protein,Urine Trace (Negative); RBC,Urine 7 /hpf (0-5); Specific Gravity,Urine 1.012 (1.001-1.035); Squamous Epithelial Cell,Urine 1 /hpf (0-4); Urobilinogen,Urine <2.0 mg/dL (<2.0); WBC,Urine 62 /hpf (0-5)
[2024-11-04] MEDS: SULFAMETHOX-TMP 800-160MG 1 EACH TAB PO STA (17:06)
[2024-11-04 17:18] VITALS: BP 151/92; PULSE 81; TEMP 97.6
== END 2024-11-04 17:12 | disposition home or self-care (01) ==
LOC: EC 14:09
DX: N13.2 Hydronephrosis with renal and ureteral calculous obstruction (principal); Z87.891 Personal history of nicotine dependence; Z88.0 Allergy status to penicillin; Z88.8 Allergy status to other drugs, medicaments and biological substances
CPT/HCPCS: 36415; 80053; 83690; 85025; 81001; 87086; 74176; 99284; 96374; 96375 ×2; 96361; J2405; J1885; J1171